=== PATIENT | male | born 1955 | race African-American/Black ===

== ENCOUNTER → 2018-07-20 | Day surgery (SDC) | payer OTHER ==
[~2018-07-20] MED LIST: HYDROmorphone 2 MG/ML VIAL IV PRN; IV RINGERS,LACTATED 1000ML 1,000 ML IV SCH; KETAMINE HCL 50 MG/5 ML SYRINGE ONE; LIDOCAINE 1% PF 2 ML VIAL. ID PRN; MIDAZOLAM HCL/PF 2 MG/2 ML VIAL. ONE; MORPHINE SULFATE 2 MG/ML VIAL. IV PRN; ONDANSETRON PF 4 MG/2 ML VIAL. IV PRN; PROCHLORPERAZINE 10 MG/2 ML VIAL. IV PRN; PROPOFOL 40 ML IV ONE; fentaNYL PF VIAL 100 MCG/2 ML VIAL IV PRN
--- NOTE | 2018-07-20 13:11 | RAD ---
MRI Thoracic Spine without contrast History: Scoliosis, worsening back pain Technique: Multiplanar, multi sequential noncontrast MR imaging was performed of the thoracic spine. Contrast: None Comparison: None Findings: Thoracic vertebral body stature and AP alignment are maintained. Thoracic cord caliber is within normal limits without focal signal abnormality. There is multilevel posterior epidural lipomatosis most notable T2-3 through T11-12, mild indentation upon the posterior thecal sac. Residual AP thecal sac such as at T6-7 measures about 11 mm, no significant thoracic spinal stenosis. There is no significant focal posterior disc abnormality of the thoracic spine. Thoracic neural foramina are not significantly narrowed. There is small hemangioma of the posterior superior aspect of the T3 vertebral body, also small focus inferiorly of the T12 vertebral body. There is multilevel mild disc desiccation of mid to inferior thoracic levels, intervertebral disc spaces relatively preserved. There is mild dextroscoliosis centered about T11. There is no significant marrow edema. Impression: 1. There is no significant thoracic spinal stenosis or neural foramina compromise. There is mild inferior thoracic dextroscoliosis. Electronically signed by: Jose Lee MD (07/20/2018 1:08 PM) [email or web address]
[2018-07-20 13:15] VITALS: BP 145/83
--- NOTE | 2018-07-20 13:23 | RAD ---
MRI Cervical Spine Without Contrast History: Worsening pain, scoliosis Technique: Multiplanar, multi sequential noncontrast MR imaging was performed of the cervical spine. Comparison: None Findings: Cervical cord caliber is within normal limits without significant focal signal abnormality. There is no significant abnormality of the cervical medullary junction. Cervical vertebral body stature is maintained. There is straightening of the cervical spine. There is moderate degenerative disc disease at C4-5, C5-6, C6-7 and to lesser degree at C3-4. AP alignment is within normal limits. There is trace C3-4 endplate edema likely reactive/degenerative in etiology. There is minimal left maxillary sinus mucosal thickening. C2-C3: There is a shallow posterior protrusion. Spinal canal and neural foramina are adequate. C3-C4: There is disc osteophyte complex and protrusion, probable component of shallow extrusion extending above the intervertebral disc space more centrally. There is also buckling of the ligamentum flavum. Combination of findings results in effacement of the ventral and dorsal subarachnoid space with impingement upon the cord greater anteriorly. Central canal is narrowed to about 5 mm. There is uncovertebral degenerative change greater on the left. There is mild narrowing of the right neural foramen, left neural foramen overall adequate. C4-C5: There is very minimal disc osteophyte complex. There is mild buckling of the ligamentum flavum. Central canal is narrowed to 7-8 mm. There is mild uncovertebral degenerative change greater on the left. There is mild facet degenerative change. There is very mild narrowing of the right neural foramen, left neural foramen overall adequate. C5-C6: There is a minimal disc osteophyte complex. Central canal is adequate about 11 mm. There is uncovertebral degenerative change bilaterally. Left neural foramen is adequate, mild narrowing of the right neural foramen greater distally. C6-C7: There is minimal disc osteophyte complex. Spinal canal is adequate. There is uncovertebral degenerative change bilaterally greater on the left. There is fairly severe left and moderate right neural foramina compromise. C7-T1: Spinal canal is adequate. There is mild uncovertebral degenerative change. There is likely mild neural foramina compromise bilaterally greater on the left. Impression: 1. There is severe spinal stenosis on the order of 5 mm at C3-4 at which there is impingement of the cord greater anteriorly, lesser degree of mild spinal stenosis at C4-5 as described. 2. There is severe left and moderate right C6-7 neural foramina compromise primarily from uncovertebral degenerative change, other minimal narrowing as stated. 3. There is multilevel moderate degenerative disc disease C4-5 to C6-7 and to lesser degree at C6 C3-4, multilevel mild spondylosis. Electronically signed by: Jose Lee MD (07/20/2018 1:20 PM) [email or web address]
== END | disposition home or self-care (01) ==
LOC: MRI 10:23
DX: M48.02 Spinal stenosis, cervical region (principal); M50.123 Cervical disc disorder at C6-C7 level with radiculopathy; M47.812 Spondylosis without myelopathy or radiculopathy, cervical region; Z88.8 Allergy status to other drugs, medicaments and biological substances; M41.9 Scoliosis, unspecified
CPT/HCPCS: 72141; 72146; J2250; J2704

== ENCOUNTER 2018-07-22 11:02 | Day surgery (SDC) | payer OTHER ==
[~2018-07-22 11:02] MED LIST changes: -HYDROmorphone 2 MG/ML VIAL IV PRN; -KETAMINE HCL 50 MG/5 ML SYRINGE ONE; -LIDOCAINE 1% PF 2 ML VIAL. ID PRN; -MIDAZOLAM HCL/PF 2 MG/2 ML VIAL. ONE; -MORPHINE SULFATE 2 MG/ML VIAL. IV PRN; -ONDANSETRON PF 4 MG/2 ML VIAL. IV PRN; -PROCHLORPERAZINE 10 MG/2 ML VIAL. IV PRN; -PROPOFOL 40 ML IV ONE; -fentaNYL PF VIAL 100 MCG/2 ML VIAL IV PRN
[2018-07-22] MEDS ORDERED: PROPOFOL 40 ML IV ONE (11:16)
--- NOTE | 2018-07-22 12:44 | RAD ---
MRI Lumbar Spine without contrast History: Low back pain, bilateral radiculopathy, scoliosis Technique: Multiplanar, multi sequential noncontrast MR imaging was performed of the lumbar spine. Contrast: None Comparison: None Findings: Lumbar vertebral body stature and AP alignment are maintained. There is mild disc desiccation L5-S1, intervertebral disc spaces relatively preserved. There is posterior annular tear L5-S1. There is no significant marrow edema. There are small hemangiomas of T12, L2, L5. Conus terminates at L2. L2-L3: There is [id number] facet degenerative change, mild buckling of the ligamentum flavum, and mild prominence of posterior epidural fat. Neural foramina and spinal canal are adequate. L3-L4: There is mild facet degenerative change and buckling of the ligamentum flavum. Neural foramina and spinal canal are adequate. L4-L5: There is mild buckling of the ligamentum flavum. Neural foramina and spinal canal are adequate. L5-S1: There is mild right facet hypertrophic change. Spinal canal is adequate. There is very mild narrowing of the right neural foramen, left neural foramen adequate. Impression: 1. There is no significant lumbar spinal stenosis. There is very mild narrowing of the right L5-S1 neural foramen. There is posterior annular tear L5-S1. Electronically signed by: Jose Lee MD (07/22/2018 12:41 PM) [email or web address]
[2018-07-22 13:30] VITALS: BP 161/82
[2018-07-22] MEDS ORDERED: LIDOCAINE 2% PF Vial for OR 5 ML VIAL. ONE (14:08)
--- NOTE | 2018-07-22 16:58 | RAD ---
MR of the musculoskeletal pelvis HISTORY: Pelvic pain. Low back pain. Bilateral radiculopathy. TECHNIQUE: Routine multiplanar sequences are obtained. FINDINGS: No bone lesion, acute fracture or acute marrow edema. No evidence of femoral head osteonecrosis. No significant joint effusion. Pubic symphysis intact. Sacroiliac joints intact. No abnormal soft tissue fluid collection. Muscle tissue is intact bilaterally. Major tendon attachments are intact. IMPRESSION: No evidence of acute abnormality Electronically signed by: Jerman Greenwood MD (07/22/2018 4:55 PM) [facility]
== END 2018-07-22 13:55 | disposition home or self-care (01) ==
LOC: SURG 11:02 → EDUNIT# 11:15 → SURG 13:55
DX: M48.061 Spinal stenosis, lumbar region without neurogenic claudication (principal); M54.16 Radiculopathy, lumbar region; M41.9 Scoliosis, unspecified; R10.2 Pelvic and perineal pain; Z88.8 Allergy status to other drugs, medicaments and biological substances
CPT/HCPCS: 72148; 72195; J2001; J2704